=== PATIENT | female | born 1955 | race Two or more races ===

== ENCOUNTER → 2017-02-22 | Outpatient (CLI) | payer OTHER | LOC: FIMAGING 11:36 | DX: Z12.31 Encounter for screening mammogram for malignant neoplasm of breast (principal) | CPT/HCPCS: G0202 ==

== ENCOUNTER → 2017-07-25 | Outpatient (CLI) | payer OTHER | LOC: BMCIMAGING 10:10 | PROVIDERS: ATTEND Obstetrics & Gynecology Gynecology | DX: Z12.39 Encounter for other screening for malignant neoplasm of breast (principal); N63.20 Unspecified lump in the left breast, unspecified quadrant | CPT/HCPCS: G0206 ==

== ENCOUNTER → 2018-07-03 | Outpatient (CLI) | payer OTHER | LOC: FIMAGING 12:17 | PROVIDERS: ATTEND Obstetrics & Gynecology Gynecology | DX: Z12.31 Encounter for screening mammogram for malignant neoplasm of breast (principal) ==

== ENCOUNTER → 2018-08-05 | Outpatient (CLI) | payer OTHER | LOC: FIMAGING 14:04 | PROVIDERS: ATTEND Internal Medicine | DX: Z13.820 Encounter for screening for osteoporosis (principal); M81.0 Age-related osteoporosis without current pathological fracture; Z78.0 Asymptomatic menopausal state ==

== ENCOUNTER → 2018-08-14 | Outpatient (CLI) | payer OTHER | LOC: FIMAGING 12:46 | PROVIDERS: ATTEND Surgery | PROC: CG111ZZ Planar Nuclear Medicine Imaging of Parathyroid Glands using Technetium 99m (Tc-99m) (ICD-10-PCS; principal; 2018-08-14) | DX: E21.0 Primary hyperparathyroidism (principal) | CPT/HCPCS: 78070; A9500; A9516 ==

== ENCOUNTER 2018-10-18 13:04 | Emergency (ER) | payer OTHER ==
--- NOTE | 2018-10-18 13:31 | EDPHY ---
H & P Time Seen by Provider: 10/18/18 13:19 HPI/ROS: CHIEF COMPLAINT: Throat pain, substernal chest discomfort HISTORY OF PRESENT ILLNESS: The patient is a 62-year-old female who presents emergency department with pain in her throat and chest. The patient feels as though she has been having reflux over the past 2 days. She states the food is able to be swallowed but then she belches and comes back up. This causes burning in her chest and her throat. Patient states she tastes the food coming back up. Her symptoms have been constant. They are worse after eating and worse when lying back. The patient has no shortness of breath. No jaw pain. No arm discomfort. No fevers or chills. No leg pain or swelling. REVIEW OF SYSTEMS: 10 systems were reveiwed and are negative with the exception of the elements mentioned in the history of present illness. Past Medical/Surgical History: Includes MS Past surgical history: Includes hysterectomy Social history: The patient does not smoke Smoking Status: Never smoked Physical Exam: Vitals noted. GENERAL: Well-appearing, in no acute distress, alert. HEENT: Eyes normal to inspection, normal pharynx, no signs of dehydration. NECK: Normal, supple. RESPIRATORY: Clear to auscultation bilaterally, no rales, rhonchi or wheezing. CVS: Regular rate and rhythm, no rubs, murmurs, or gallops. ABDOMEN: Soft, mild epigastric discomfort with no rebound or guarding, nondistended, no organomegaly. BACK: Normal to inspection, no CVA tenderness. SKIN: Normal color, no rash, warm, dry. No pallor. EXTREMITIES: No pedal edema, no calf tenderness, no Homans sign or cords, no joint swelling. NEURO/PSYCH: Alert and oriented, normal mood and affect, normal motor sensory exam. Constitutional: Initial Vital Signs Temperature (C) 36.3 C 10/18/18 13:07 Heart Rate 94 10/18/18 13:07 Respiratory Rate 16 10/18/18 13:07 Blood Pressure 137/75 H 10/18/18 13:07 O2 Sat (%) 95 10/18/18 13:07 O2 Delivery Mode Room Air Allergies/Adverse Reactions: morphine Allergy (Verified 10/18/18 13:07) unknown muscle relaxant? Allergy (Uncoded 10/18/18 13:07) Home Medications: Medication Instructions Recorded Tegretol 08/29/15 Medical Decision Making - Diagnostics Imaging Results: Imaging Impressions Chest X-Ray 10/18/18 13:32 Impression: No evidence of acute cardiopulmonary abnormality. ED Course/Re-evaluation: In the emergency department I discussed possible etiologies with the patient. I answered all her questions. Patient was given a GI cocktail. Laboratory studies, chest x-ray and EKG were ordered. EKG shows normal sinus rhythm, normal rate, normal axis, normal intervals. There are no ST or T-wave abnormalities. EKG is normal as interpreted by me. I reviewed the patient's upper GI from 01/04/2016. This showed minimal esophagitis. No gastroesophageal reflux occurred at the time of the exam. The patient's CBC shows leukopenia at 3.7. Patient's chemistry panel is pending. His troponin is 0.01. Chest x-ray: No acute disease noted On recheck the patient was feeling better. She had no abdominal tenderness palpation. No signs respiratory distress. I reviewed the patient's findings. I recommended that she take omeprazole for the next 7 days. She states she has this at home. She will follow up with GI. She was given warnings prior to leaving. She will return with worsening symptoms. Differential Diagnosis: My differential includes but is not limited to esophagitis, GERD, peptic ulcer disease, esophageal tear, ACS, acute MD, myocarditis, pericarditis, pulmonary embolus, pancreatitis, cholecystitis - Data Points Laboratory Results: Laboratory Results 10/18/18 13:35 10/18/18 13:35 10/18/18 10/18/18 10/18/18 13:40 13:35 13:35 WBC 3.76 10^3/uL L 10^3/uL (3.80-9.50) RBC 4.39 10^6/uL 10^6/uL (4.18-5.33) Hgb 14.8 g/dL g/dL (12.6-16.3) Hct 43.4 % % (38.0-47.0) MCV 98.9 fL fL (81.5-99.8) MCH 33.7 pg pg (27.9-34.1) MCHC 34.1 g/dL g/dL (32.4-36.7) RDW 11.8 % % (11.5-15.2) Plt Count 256 10^3/uL 10^3/uL (150-400) MPV 9.2 fL fL (8.7-11.7) Neut % (Auto) 56.1 % % (39.3-74.2) Lymph % (Auto) 35.4 % % (15.0-45.0) [place] % (Auto) 7.2 % % (4.5-13.0) Eos % (Auto) 0.5 % L % (0.6-7.6) Baso % (Auto) 0.3 % % (0.3-1.7) Nucleat RBC Rel Count 0.0 % % (0.0-0.2) Absolute Neuts (auto) 2.11 10^3/uL 10^3/uL (1.70-6.50) Absolute Lymphs (auto) 1.33 10^3/uL 10^3/uL (1.00-3.00) Absolute Monos (auto) 0.27 10^3/uL L 10^3/uL (0.30-0.80) Absolute Eos (auto) 0.02 10^3/uL L 10^3/uL (0.03-0.40) Absolute Basos (auto) 0.01 10^3/uL L 10^3/uL (0.02-0.10) Absolute Nucleated RBC 0.00 10^3/uL 10^3/uL (0-0.01) Immature Gran % 0.5 % % (0.0-1.1) Immature Gran # 0.02 10^3/uL 10^3/uL (0.00-0.10) Sodium 133 mEq/L L mEq/L (135-145) Potassium 3.8 mEq/L mEq/L (3.5-5.2) Chloride 100 mEq/L mEq/L (97-110) Carbon Dioxide 24 mEq/l mEq/l (22-31) Anion Gap 9 mEq/L mEq/L (6-14) BUN 7 mg/dL mg/dL (7-23) Creatinine 0.6 mg/dL mg/dL (0.6-1.0) Estimated GFR > 60 Glucose 139 mg/dL H mg/dL (70-100) Calcium 9.0 mg/dL mg/dL (8.5-10.4) Total Bilirubin 0.3 mg/dL mg/dL (0.1-1.4) Conjugated Bilirubin 0.2 mg/dL mg/dL (0.0-0.5) Unconjugated Bilirubin 0.1 mg/dL mg/dL (0.0-1.1) AST 18 IU/L IU/L (14-46) ALT 22 IU/L IU/L (9-52) Alkaline Phosphatase 80 IU/L IU/L (38-126) POC Troponin I 0.01 ng/mL ng/mL (0.00-0.08) Total Protein 7.0 g/dL g/dL (6.3-8.2) Albumin 4.4 g/dL g/dL (3.5-5.0) Lipase 98 IU/L IU/L (23-300) Medications Given: Discontinued Medications Al Hydroxide/Mg Hydroxide (Maalox Susp) 30 ml PO ONCE ONE Stop: 10/18/18 13:33 Last Admin: 10/18/18 13:56 Dose: 30 ml Hyoscyamine Sulfate (Levsin, Hyomax-Sl) 0.25 mg PO ONCE ONE Stop: 10/18/18 13:33 Last Admin: 10/18/18 13:56 Dose: 0.25 mg Lidocaine (Lidocaine 2% Viscous) 15 ml PO ONCE ONE Stop: 10/18/18 13:33 Last Admin: 10/18/18 13:56 Dose: 15 ml Point of Care Test Results: Chemistry 10/18/18 13:40 POC Troponin I 0.01 ng/mL ng/mL (0.00-0.08) Departure - Departure Disposition: Home, Routine, Self-Care Clinical Impression: Epigastric pain Chest pain Qualifiers: Chest pain type: unspecified Qualified Code(s): R07.9 - Chest pain, unspecified Condition: Good Instructions: Chest Pain (ED), Gastroesophageal Reflux Disease (ED) Additional Instructions: Return with increasing pain, shortness of breath, fever or any other concerns. Take omeprazole for the next 7 days. Take Tums and Maalox as needed for discomfort. Referrals: Floresita Tomlinson MD [Medical Doctor] - 5-7 days, call for appt. Yaya Pearson MD [Primary Care Provider] - 5-7 days, call for appt.
[2018-10-18] MEDS ORDERED: LIDOCAINE 2% VISCOUS 15 ML UDCUP PO ONE (13:32)
[2018-10-18] MEDS ORDERED: HYOSCYAMINE SULFATE 0.125 MG TAB PO ONE (13:32)
[2018-10-18] MEDS ORDERED: MAG HYDROX/AL HYDROX/SIMETH 30 ML UDCUP PO ONE (13:32)
[2018-10-18 13:52] LABS: PLATELET COUNT 256 10^3/uL (150-400)
[2018-10-18 14:37] VITALS: BP 126/82
--- NOTE | 2018-10-19 14:52 | CPEKG ---
Test Reason : OPEN Blood Pressure : / mmHG Vent. Rate : 088 BPM Atrial Rate : 088 BPM P-R Int : 128 ms QRS Dur : 092 ms QT Int : 365 ms P-R-T Axes : 071 045 059 degrees QTc Int : 442 ms Sinus rhythm Confirmed by Solomon Hernandez [id number]) on 10/19/2018 2:51:35 PM Referred By: Confirmed By:Solomon Hernandez
== END 2018-10-18 15:15 | disposition home or self-care (01) ==
DX: R07.9 Chest pain, unspecified (principal); R07.0 Pain in throat; R10.13 Epigastric pain
CPT/HCPCS: 84484-PO

== ENCOUNTER → 2018-11-05 | Outpatient (CLI) | payer OTHER ==
[~2018-11-05] MED LIST: IOPAMIDOL (ISOVUE 370) 100 ML BTL IV ONE
== END ==
LOC: FIMAGING 12:39
PROVIDERS: ATTEND Surgery
DX: E21.5 Disorder of parathyroid gland, unspecified (principal); E21.0 Primary hyperparathyroidism; R91.8 Other nonspecific abnormal finding of lung field; N64.9 Disorder of breast, unspecified
CPT/HCPCS: Q9967

== ENCOUNTER → 2018-12-28 | Outpatient (CLI) | payer OTHER | LOC: FIMAGING 08:38 | PROVIDERS: ATTEND Nurse Practitioner Family | DX: M51.16 Intervertebral disc disorders with radiculopathy, lumbar region (principal); M46.96 Unspecified inflammatory spondylopathy, lumbar region ==

== ENCOUNTER → 2019-03-27 | Outpatient (CLI) | payer OTHER | LOC: FIMAGING 09:02 ==

== ENCOUNTER → 2019-04-16 | Outpatient (CLI) | payer OTHER | LOC: FIMAGING 15:08 ==